=== PATIENT | female | born 2000 | race African-American/Black ===

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

== ENCOUNTER 2018-01-26 19:06 | Emergency (ER) | payer OTHER ==
[2018-01-26 19:15] VITALS: BP 160/70; PULSE 77; RESP 20; TEMP 98.5
[2018-01-26] MEDS ORDERED: LIDOCAINE 1% INJ 10MG/ML (20 ML MDV) SQ ONE (19:16)
[2018-01-26] MEDS ORDERED: DIPH,PERTUS(ACELL)TETVAC-LF 0.5 ML VIAL IM ONE (19:17)
--- NOTE | 2018-01-26 19:22 | ED ---
General Adult HPI - General Chief complaint: Wound/Laceration Stated complaint: rt thumb laceration Source: patient Mode of arrival: ambulatory Limitations: no limitations - History of Present Illness Initial comments: Dictation was produced using [employer] dictation software. please excuse any grammatical, word or spelling errors. Chief Complaint: 16-year-old female presents with right thumb laceration. History of Present Illness: Patient is a 17-year-old -[place] female presents with right thumb laceration. Patient was cutting sweet potatoes with a vegetable slicer when at approximately 6:30 PM she accidentally sliced the distal tip of her right thumb. Patient had cut off a small piece of her right thumb including the nail. Patient noted severe bleeding to the area. Patient states her tetanus was updated 2 years ago. Patient has no other complaints at this time. The ROS documented in this emergency department record has been reviewed and confirmed by me. Those systems with pertinent positive or negative responses have been documented in the HPI. All other systems are other negative and/or noncontributory. - Related Data Home Medications Medication Instructions Recorded Confirmed Fluticasone Nasal [place] [Flonase 1 spray EA NOSTRIL DAILY PRN 01/26/18 01/26/18 Nasal [place]] Ibuprofen [Motrin Ib] 400 mg PO Q6HR PRN 01/26/18 01/26/18 Loratadine [Claritin] 10 mg PO DAILY PRN 01/26/18 01/26/18 Allergies Allergy/AdvReac Type Severity Reaction Status Date / Time amoxicillin Allergy Swelling Verified 01/26/18 19:23 Penicillins Allergy Swelling Verified 01/26/18 19:23 Review of Systems ROS Statement: Those systems with pertinent positive or pertinent negative responses have been documented in the HPI. ROS Other: All systems not noted in ROS Statement are negative. Past Medical History Past Medical History: No Reported History Additional Past Medical History / Comment(s): seasonal allergies History of Any Multi-Drug Resistant Organisms: None Reported Past Surgical History: No Surgical Hx Reported Past Psychological History: No Psychological Hx Reported Smoking Status: Current every day smoker Past Alcohol Use History: None Reported Past Drug Use History: Marijuana General Exam - General Exam Comments Initial Comments: PHYSICAL EXAM: General Impression: Alert and oriented x3, not in acute distress HEENT: Normocephalic atraumatic, extra-ocular movements intact, pupils equal and reactive to light bilaterally, mucous membranes moist. Cardiovascular: Heart regular rate and rhythm, S1&S2 audible, no murmurs, rubs or gallops Chest: Lungs clear to auscultation bilaterally, no rhonchi, no wheeze, no rales Abdomen: Bowel sounds present, abdomen soft, non-tender, non-distended, no organomegaly Musculoskeletal: Pulses present and equal in all extremities, no peripheral edema Motor: Power 5/5 bilaterally, no focal deficits noted Neurological: CN II-XII grossly intact, no focal motor or sensory deficits noted Skin: Intact with no visualized rashes, partial amputation of the right distal thumb. No exposed bone. Psych: Normal affect and mood Limitations: no limitations Course Vital Signs 01/26/18 19:10 Temperature 98.5 F Pulse Rate 77 Respiratory 20 Rate Blood Pressure 160/70 O2 Sat by Pulse 98 Oximetry Medical Decision Making - Medical Decision Making ED course: Old female presents with partial amputation of the distal tip of the right thumb after accident no cutting of her finger using a vegetable slicer. Vital signs upon arrival shows blood pressure 160/70, worse vital signs within normal limits. Digital block was performed. Wound was evaluated. No exposed bone. Hemorrhage was controlled with gentle pressure to the distal tip. Digital block was performed for further evaluation. Patient brought piece of amputated tissue however is devascularized. Furthermore patient's is very small Diagnostic displaced distal tip and bandage was placed. Patient given a thumb splint. No indication for tetanus is up-to-date given that patient had recent tetanus. Wound was irrigated with sterile water. Told to follow up with primary care physician upon discharge. He is told to take Motrin for pain. Disposition Clinical Impression: Laceration Disposition: HOME SELF-CARE Condition: Good Is patient prescribed a controlled substance at d/c from ED?: No Referrals: Klever Swann MD [Primary Care Provider] - 1-2 days Time of Disposition: 19:44
== END 2018-01-26 20:00 | disposition home or self-care (01) ==
LOC: EC 19:06
DX: S61.011A Laceration without foreign body of right thumb without damage to nail, initial encounter (principal); F17.200 Nicotine dependence, unspecified, uncomplicated; Z23 Encounter for immunization; Z88.0 Allergy status to penicillin; W26.8XXA Contact with other sharp object(s), not elsewhere classified, initial encounter; Y92.009 Unspecified place in unspecified non-institutional (private) residence as the place of occurrence of the external cause
CPT/HCPCS: 90715; 99282; 64450; 90471; J2001

== ENCOUNTER 2018-12-03 00:36 | Emergency (ER) | payer OTHER ==
[2018-12-03 00:44] VITALS: RESP 18
[2018-12-03] MEDS ORDERED: SODIUM CHLORIDE 0.9% 500 ML 500 ML IV STA (01:19)
[2018-12-03] MEDS ORDERED: diphenhydrAMINE 50 MG/ML 1 ML VIAL IVP STA (01:19)
[2018-12-03] MEDS ORDERED: FAMOTIDINE 20 MG/2 ML VIAL IV STA (01:19)
[2018-12-03] MEDS ORDERED: predniSONE 20 MG TAB PO STA (01:19)
--- NOTE | 2018-12-03 01:20 | ED ---
Allergic Reaction HPI - General Chief complaint: Allergic Reaction Stated complaint: bee sting Time Seen by Provider: 12/03/18 00:48 Source: patient Mode of arrival: ambulatory Limitations: no limitations - History of Present Illness MD Complaint: hives -: minutes(s) Exposure: insect bite Symptoms: rash, itching Severity: moderate Treatment Prior to Arrival: none Previous Allergy History: prior ED visit(s) - Related Data Home Medications Medication Instructions Recorded Confirmed Fluticasone Nasal [place] [Flonase 1 spray EA NOSTRIL DAILY PRN 01/26/18 01/26/18 Nasal [place]] Ibuprofen [Motrin Ib] 400 mg PO Q6HR PRN 01/26/18 01/26/18 Loratadine [Claritin] 10 mg PO DAILY PRN 01/26/18 01/26/18 Previous Rx's Medication Instructions Recorded Fluticasone Nasal [place] [Flonase 2 spr EA NOSTRIL DAILY #1 bottle 08/28/18 Nasal [place]] methylPREDNISolone [Medrol Dose 4 mg PO DIRECTED #1 pack 08/28/18 Pack] predniSONE 60 mg PO DAILY #30 tab 12/03/18 Allergies Allergy/AdvReac Type Severity Reaction Status Date / Time amoxicillin Allergy Swelling Verified 08/28/18 00:05 bee pollen Allergy Rash/Hives Verified 12/03/18 00:44 Penicillins Allergy Swelling Verified 08/28/18 00:05 Review of Systems ROS Statement: Those systems with pertinent positive or pertinent negative responses have been documented in the HPI. ROS Other: All systems not noted in ROS Statement are negative. Constitutional: Denies: fever, chills, weakness Eyes: Denies: vision change ENT: Denies: throat pain, congestion Respiratory: Denies: cough, wheezes Cardiovascular: Denies: palpitations, syncope Gastrointestinal: Denies: abdominal pain, vomiting, diarrhea Skin: Reports: rash, pruritus Past Medical History Past Medical History: No Reported History Additional Past Medical History / Comment(s): seasonal allergies History of Any Multi-Drug Resistant Organisms: None Reported Past Surgical History: No Surgical Hx Reported Past Psychological History: No Psychological Hx Reported Smoking Status: Current every day smoker Past Alcohol Use History: Abuse, Daily Past Drug Use History: Marijuana General Exam Limitations: no limitations General appearance: alert, in no apparent distress ENT exam: Present: normal oropharynx Respiratory exam: Present: normal lung sounds bilaterally. Absent: respiratory distress, wheezes, rales, rhonchi, stridor Cardiovascular Exam: Present: regular rate, normal rhythm, normal heart sounds. Absent: systolic murmur, diastolic murmur, rubs, gallop GI/Abdominal exam: Present: soft. Absent: tenderness Neurological exam: Present: alert Skin exam: Present: warm, dry, intact, normal color, urticaria. Absent: rash Course Vital Signs 12/03/18 12/03/18 12/03/18 00:40 01:40 04:26 Temperature 97.9 F 97.8 F 98.7 F Pulse Rate 71 61 65 Respiratory 18 18 18 Rate Blood Pressure 144/87 147/90 128/76 O2 Sat by Pulse 98 98 98 Oximetry Disposition Clinical Impression: Allergic reaction to insect sting Disposition: HOME SELF-CARE Condition: Good Instructions (If sedation given, give patient instructions): Insect Bite or Sting (ED), General Allergic Reaction (ED) Prescriptions: predniSONE 60 mg PO DAILY #30 tab Is patient prescribed a controlled substance at d/c from ED?: No Referrals: Klever Swann MD [Primary Care Provider] - 1-2 days
[2018-12-03 04:27] VITALS: BP 128/76; PULSE 65; TEMP 98.7
== END 2018-12-03 04:56 | disposition home or self-care (01) ==
LOC: EC 00:36
DX: T63.441A Toxic effect of venom of bees, accidental (unintentional), initial encounter (principal); F17.200 Nicotine dependence, unspecified, uncomplicated; Z88.0 Allergy status to penicillin; Z91.030 Bee allergy status
CPT/HCPCS: 99282; 96374; 96375; 96361 ×2; J1200; J7512

== ENCOUNTER 2018-12-04 00:50 | Emergency (ER) | payer OTHER ==
[2018-12-04 01:01] VITALS: TEMP 98
[2018-12-04] MEDS ORDERED: DEXAMETHASONE SOD PHOSPHATE 10 MG/ML 1 ML VIAL IM STA (01:14)
[2018-12-04] MEDS ORDERED: IPRATROPIUM-ALBUTEROL 3 ML NEB INHALATION STA (01:14)
[2018-12-04] MEDS ORDERED: FAMOTIDINE 20 MG TAB PO STA (01:14)
--- NOTE | 2018-12-04 02:39 | ED ---
General Adult HPI - General Chief complaint: Allergic Reaction Stated complaint: Allergic Reaction Bee Sting Time Seen by Provider: 12/04/18 01:06 Source: patient Mode of arrival: ambulatory Limitations: no limitations - History of Present Illness Initial comments: 18-year-old female patient presents the emergency department today for evaluation of flushed face and facial swelling. Patient states that she was stung by a bee yesterday. States she was seen here and evaluated for ALLERGIC reaction. States she was discharged with steroids and instructed to take Benadryl. States she last of Benadryl around 4 PM. States she took her steroids this evening. States that after taking the steroids her face became very flushed, she felt weird, and felt like her face was swollen. She denied any lip, tongue, or throat swelling. Patient states she was having some wheezing. States she does occasionally have wheezing because she is a smoker and uses vape pens. She denies any fever or chills. Denies any cough or sputum production. Denies any rash. States that her neck was itchy. Patient denies any recent rash, chest pain, abdominal pain, nausea, vomiting, diarrhea, constipation, back pain, numbness, tingling, dizziness, weakness, hematuria, dysuria, urinary urgency, urinary frequency, headache, visual changes, or any other complaints. - Related Data Home Medications Medication Instructions Recorded Confirmed Fluticasone Nasal [place] [Flonase 1 spray EA NOSTRIL DAILY PRN 01/26/18 01/26/18 Nasal [place]] Ibuprofen [Motrin Ib] 400 mg PO Q6HR PRN 01/26/18 01/26/18 Loratadine [Claritin] 10 mg PO DAILY PRN 01/26/18 01/26/18 Previous Rx's Medication Instructions Recorded Fluticasone Nasal [place] [Flonase 2 spr EA NOSTRIL DAILY #1 bottle 08/28/18 Nasal [place]] methylPREDNISolone [Medrol Dose 4 mg PO DIRECTED #1 pack 08/28/18 Pack] predniSONE 60 mg PO DAILY #30 tab 12/03/18 Allergies Allergy/AdvReac Type Severity Reaction Status Date / Time amoxicillin Allergy Swelling Verified 12/04/18 01:01 bee pollen Allergy Rash/Hives Verified 12/04/18 01:01 Penicillins Allergy Swelling Verified 12/04/18 01:01 Review of Systems ROS Statement: Those systems with pertinent positive or pertinent negative responses have been documented in the HPI. ROS Other: All systems not noted in ROS Statement are negative. Past Medical History Past Medical History: No Reported History Additional Past Medical History / Comment(s): seasonal allergies History of Any Multi-Drug Resistant Organisms: None Reported Past Surgical History: No Surgical Hx Reported Past Psychological History: No Psychological Hx Reported Smoking Status: Current every day smoker Past Alcohol Use History: Abuse, Daily Past Drug Use History: Marijuana General Exam Limitations: no limitations General appearance: alert, in no apparent distress, other (This is a well- developed, well-nourished adult female patient in no acute distress. Vital signs upon presentation are temperature 98.0F, pulse 59, respirations 18, blood pressure 141/93, pulse ox 97% on room air.) Eye exam: Present: normal appearance, PERRL, EOMI. Absent: scleral icterus, conjunctival injection, periorbital swelling ENT exam: Present: normal exam, normal oropharynx, mucous membranes moist Respiratory exam: Present: wheezes (Today expiratory wheezes noted in the posterior lung gonzalez). Absent: normal lung sounds bilaterally, respiratory distress, rales, rhonchi, stridor Cardiovascular Exam: Present: regular rate, normal rhythm, normal heart sounds. Absent: systolic murmur, diastolic murmur, rubs, gallop, clicks GI/Abdominal exam: Present: soft, normal bowel sounds. Absent: distended, tenderness, guarding, rebound, rigid Neurological exam: Present: alert, oriented X3, CN II-XII intact Psychiatric exam: Present: normal affect, normal mood Skin exam: Present: warm, dry, intact, normal color. Absent: rash Course Vital Signs 12/04/18 12/04/18 12/04/18 00:59 01:24 01:31 Temperature 98 F Pulse Rate 59 L 60 66 Respiratory 18 Rate Blood Pressure 141/93 O2 Sat by Pulse 97 Oximetry 12/04/18 12/04/18 01:36 02:55 Temperature 98 F Pulse Rate 74 Respiratory 20 18 Rate Blood Pressure 136/90 O2 Sat by Pulse 97 Oximetry Medical Decision Making - Medical Decision Making 18-year-old female patient presented to the emergency department today for evaluation of facial flushing, swelling, and shortness of breath. Physical examination did reveal expiratory wheezing in the posterior lung gonzalez. Patient's cheeks were red and hot to touch. Patient was given albuterol breathing treatment here in the emergency department as well as an IM dose of Decadron and oral dose of Pepcid.. Upon reevaluation patient is resting comfortably. States symptoms have improved. We discussed use of steroids the possible cause for the flushed feeling in her face. She is urged to continue taking these however given ALLERGIC reaction. She is instructed to follow-up with her primary care physician for recheck in 1-2 days. Return parameters were discussed in detail. She verbalizes understanding and agrees with this plan. Disposition Clinical Impression: Allergic reaction Disposition: HOME SELF-CARE Condition: Good Instructions (If sedation given, give patient instructions): General Allergic Reaction (ED) Additional Instructions: Continue taking Benadryl every 6 hours as needed. Follow-up with your primary care physician for recheck in 1-2 days. Return to the emergency department immediately for any new, worsening, or concerning symptoms. Is patient prescribed a controlled substance at d/c from ED?: No Referrals: Klever Swann MD [Primary Care Provider] - 1-2 days Time of Disposition: 02:40
[2018-12-04 02:57] VITALS: BP 136/90; PULSE 74; RESP 18
== END 2018-12-04 03:02 | disposition home or self-care (01) ==
LOC: EC 00:50
DX: T63.441A Toxic effect of venom of bees, accidental (unintentional), initial encounter (principal); R23.2 Flushing; R22.0 Localized swelling, mass and lump, head; R06.02 Shortness of breath; R06.2 Wheezing; F17.200 Nicotine dependence, unspecified, uncomplicated; Z88.0 Allergy status to penicillin; Z91.030 Bee allergy status
CPT/HCPCS: 94640; 99283; 96372; J1100

== ENCOUNTER 2019-03-07 06:25 | Emergency (ER) | payer OTHER ==
[2019-03-07 06:33] VITALS: RESP 18; TEMP 97.9
[2019-03-07] MEDS ORDERED: ONDANSETRON ODT 4 MG TAB PO STA (06:41)
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
[2019-03-07] MEDS ORDERED: KETOROLAC 60 MG/2 ML VIAL IM STA (07:39)
[2019-03-07 09:19] VITALS: BP 121/73; PULSE 68
== END 2019-03-07 09:17 | disposition home or self-care (01) ==
LOC: EC 06:25
DX: R51 Headache (principal); R42 Dizziness and giddiness; R11.0 Nausea; F17.200 Nicotine dependence, unspecified, uncomplicated; Z88.0 Allergy status to penicillin; Z91.030 Bee allergy status; Y04.0XXA Assault by unarmed brawl or fight, initial encounter; Y93.89 Activity, other specified
CPT/HCPCS: 70450; 99284; 96372; J1885

== ENCOUNTER 2023-05-26 10:12 | Emergency (ER) | payer BC ==
[2023-05-26 10:22] VITALS: BP 180/97
--- NOTE | 2023-05-26 10:23 | ED ---
Abdominal Pain HPI - General Chief Complaint: Abdominal Pain Stated Complaint: Vaginal pain Time Seen by Provider: 05/26/23 10:23 Source: patient, RN notes reviewed Mode of arrival: ambulatory Limitations: no limitations - History of Present Illness Initial Comments: 22-year-old female with a past medical history of endometriosis presents to the emergency department with a chief complaint of suprapubic pain and fevers over the last 6 days. Patient states that she was tested for COVID and flu which came back negative. Patient also endorses dysuria and increase in frequency and urgency and a discoloration of her urine. Patient states that she recently finished her menstrual cycle, but states that she is experiencing a dark red brown-colored discharge. Patient denies history of STI/STD or treatment for them and denies new sexual partners. She is scheduled to follow up with her end polisher for potential biopsy of a cyst today depending on her visit to the ER. - Related Data Home Medications Medication Instructions Recorded Confirmed Sertraline [Zoloft] 25 mg PO HS 06/09/21 06/09/21 Allergies Allergy/AdvReac Type Severity Reaction Status Date / Time amoxicillin Allergy Swelling Verified 06/09/21 23:24 bee pollen Allergy Rash/Hives Verified 06/09/21 23:24 Penicillins Allergy Swelling Verified 06/09/21 23:25 of throat Review of Systems ROS Statement: Those systems with pertinent positive or pertinent negative responses have been documented in the HPI. ROS Other: All systems not noted in ROS Statement are negative. Past Medical History Past Medical History: No Reported History, GERD/Reflux Additional Past Medical History / Comment(s): endometrosis History of Any Multi-Drug Resistant Organisms: None Reported Past Surgical History: No Surgical Hx Reported Past Psychological History: Depression Smoking Status: Vaper Past Alcohol Use History: Occasional Past Drug Use History: Marijuana General Exam Limitations: no limitations General appearance: alert, in no apparent distress Head exam: Present: atraumatic, normocephalic, normal inspection Eye exam: Present: normal appearance, PERRL, EOMI. Absent: scleral icterus, conjunctival injection, periorbital swelling ENT exam: Present: normal exam, mucous membranes moist Neck exam: Present: normal inspection. Absent: tenderness, meningismus, lym phadenopathy Respiratory exam: Present: normal lung sounds bilaterally. Absent: respiratory distress, wheezes, rales, rhonchi, stridor Cardiovascular Exam: Present: regular rate, normal rhythm, normal heart sounds. Absent: systolic murmur, diastolic murmur, rubs, gallop, clicks GI/Abdominal exam: Present: soft, tenderness (suprapubic tenderness to light palpation), guarding (guarding with palpation of RLQ), normal bowel sounds. Absent: distended, rebound, rigid Extremities exam: Present: normal inspection, full ROM, normal capillary refill. Absent: tenderness, pedal edema, joint swelling, calf tenderness Back exam: Present: CVA tenderness (R), CVA tenderness (L) Neurological exam: Present: alert, oriented X3, CN II-XII intact Psychiatric exam: Present: normal affect, normal mood Skin exam: Present: warm, dry, intact, normal color. Absent: rash Course Vital Signs 05/26/23 05/26/23 10:17 14:04 Temperature 98.4 F 98.9 F Pulse Rate 64 70 Respiratory 16 18 Rate Blood Pressure 180/97 O2 Sat by Pulse 98 99 Oximetry Medical Decision Making - Medical Decision Making Was pt. sent in by a medical professional or institution (, PA, [employer]IDENT OF [place], urgent care, hospital, or custodial...) When possible be specific @ -No Did you speak to anyone other than the patient for history (EMS, parent, family, police, friend...)? What history was obtained from this source @ -No Did you review nursing and triage notes (agree or disagree)? Why? @ -I reviewed and agree with nursing and triage notes Were old charts reviewed (outside hosp., previous admission, EMS record, old EKG, old radiological studies, urgent care reports/EKG's, custodial records)? Report findings @ -No old charts were reviewed Differential Diagnosis (chest pain, altered mental status, abdominal pain women, abdominal pain men, vaginal bleeding, weakness, fever, dyspnea, syncope, headache, dizziness, GI bleed, back pain, seizure, CVA, palpatations, mental health, musculoskeletal)? @ -Differential Abdominal Pain Women: Appendicitis, Cholecystitis, diverticulosis, ischemic bowel, pancreatitis, hepa titis, UTI, gastroenteritis, AAA, incarcerated hernia, bowel obstruction, constipation, inflammatory bowel, hepatitis, peptic ulcer disease, splenic infarction, perforated viscus, vulvitis, ovarian torsion, PID, kidney stone, placenta abruption, this is not meant to be an all-inclusive list Differential Vaginal Bleeding: Spontaneous , threatened , molar , ectopic , bloody show, incompetent cervix, abruptioplacenta, placenta previa, uterine rupture, dysfunctional uterine bleeding, hemorrhage, uterine fibroids, this is not meant to be an all-inclusive list. EKG interpreted by me (3pts min.). @ -none X-rays interpreted by me (1pt min.). @ -None done CT interpreted by me (1pt min.). @ -CT abdomen and pelvis shows 9 x 4 x 8.6 cm cystic/solid mass in the pelvis that most likely originates from the right adnexa U/S interpreted by me (1pt. min.). @ -None done What testing was considered but not performed or refused? (CT, X-rays, U/S, labs)? Why? @ -None What meds were considered but not given or refused? Why? @ -None Did you discuss the management of the patient with other professionals (professionals i.e. , PA, [employer]IDENT [place], lab, RT, psych nurse, adoption social worker, cable splicer apprentice, teacher, security vehicle patrol officer, medical case manager)? Give summary @ -Discussed with the attending end polisher on-call , who interpreted the radiology report as well. He spoke to his outpatient office team, and we will have front staff call the patient to schedule of a ultrasound at an office appointment for further evaluation and management of the mass. Was smoking cessation discussed for >3mins.? @ -No Was critical care preformed (if so, how long)? @ -No Were there social determinants of health that impacted care today? How? (Homelessness, low income, unemployed, alcoholism, drug addiction, transportation, low edu. Level, literacy, decrease access to med. care, [facility], rehab)? @ -No Was there de-escalation of care discussed even if they declined (Discuss DNR or withdrawal of care, Hospice)? DNR status @ -No What co-morbidities impacted this encounter? (DM, HTN, Smoking, COPD, CAD, Cancer, CVA, ARF, Chemo, Hep., AIDS, mental health diagnosis, sleep apnea, morbid obesity)? @ -obesity Was patient admitted / discharged? Hospital course, mention meds given and route, prescriptions, significant lab abnormalities, going to OR and other pertinent info. @ -Discharged. 22-year-old female with pelvic pain and fevers over the last 6 days. CBC reveals leukocytosis of 14.5 and neutrophils of 12.1, BMP no electrolyte abnormalities found, LFTs within normal limits. Urinalysis no acute signs of infection, hcg negative. Toradol for pain relief, but states that her pain still is persistent. Given oral [place] for pain relief. CT abdomen and pelvis shows 9 x 4 x 8.6 cm cystic/solid mass in the pelvis that most likely originates from the right adnexa. Discussed with the attending end polisher on- call , who interpreted the radiology report as well. He spoke to his outpatient office team, and we will have front staff call the patient to schedule of a ultrasound at an office appointment for further evaluation and management of the mass. His vitals are stable and physical exam relatively benign. She is stable for discharge. Patient to follow-up with end polisher outpatient for further evaluation and treatment I discussed this case with my attending Dr. Guerrero, who is agreeable with plan and for discharge. Undiagnosed new problem with uncertain prognosis? @ -No Drug Therapy requiring intensive monitoring for toxicity (Heparin, Nitro, Insulin, Cardizem)? @ -No Were any procedures done? @ -No Diagnosis/symptom? @ -Cystic pelvic mass, pelvic pain, abdominal pain Acute, or Chronic, or Acute on Chronic? @ -acute Uncomplicated (without systemic symptoms) or Complicated (systemic symptoms)? @ -uncomplicated Side effects of treatment? @ -No Exacerbation, Progression, or Severe Exacerbation? @ -No Poses a threat to life or bodily function? How? (Chest pain, [place], MD, pneumonia, PE, COPD, DKA, ARF, appy, cholecystitis, CVA, Diverticulitis, Homicidal, Suicidal, threat to staff... and all critical care pts) @ -No - Lab Data Result diagrams: 05/26/23 11:01 05/26/23 11:01 Lab Results 05/26/23 05/26/23 05/26/23 Range/Units 10:47 10:47 11:01 WBC 14.5 H (3.8-10.6) k/uL RBC 4.48 (3.80-5.40) m/uL Hgb 12.6 (11.4-16.0) gm/dL Hct 39.3 (34.0-46.0) % MCV 87.7 (80.0-100.0) fL MCH 28.1 (25.0-35.0) pg MCHC 32.0 (31.0-37.0) g/dL RDW 12.3 (11.5-15.5) % Plt Count 435 (150-450) k/uL MPV 8.8 Neutrophils % 83 % Lymphocytes % 11 % Monocytes % 4 % Eosinophils % 1 % Basophils % 0 % Neutrophils # 12.1 H (1.3-7.7) k/uL Lymphocytes # 1.5 (1.0-4.8) k/uL Monocytes # 0.5 (0-1.0) k/uL Eosinophils # 0.2 (0-0.7) k/uL Basophils # 0.0 (0-0.2) k/uL Sodium (137-145) mmol/L Potassium (3.5-5.1) mmol/L Chloride (98-107) mmol/L Carbon Dioxide (22-30) mmol/L Anion Gap mmol/L BUN (7-17) mg/dL Creatinine (0.52-1.04) mg/dL Est GFR (CKD-EPI)AfAm (>60 ml/min/1.73 sqM) Est GFR (CKD-EPI)NonAf (>60 ml/min/1.73 sqM) Glucose (74-99) mg/dL Calcium (8.4-10.2) mg/dL Total Bilirubin (0.2-1.3) mg/dL AST (14-36) U/L ALT (4-34) U/L Alkaline Phosphatase (38-126) U/L Total Protein (6.3-8.2) g/dL Albumin (3.5-5.0) g/dL Urine Color Yellow Urine Appearance Cloudy H (Clear) Urine pH 5.5 (5.0-8.0) Ur Specific [place] 1.025 (1.001-1.035) Urine Protein Trace H (Negative) Urine Glucose (UA) Negative (Negative) Urine Ketones Negative (Negative) Urine Blood Moderate H (Negative) Urine Nitrite Negative (Negative) Urine Bilirubin Negative (Negative) Urine Urobilinogen <2.0 (<2.0) mg/dL Ur Leukocyte Esterase Moderate H (Negative) Urine RBC 5 (0-5) /hpf Urine WBC 14 H (0-5) /hpf Ur Squamous Epith Cells 6 H (0-4) /hpf Urine Bacteria Rare H (None) /hpf Urine Mucus Occasional H (None) /hpf Urine HCG, Qual Not Detected (Not Detectd) 05/26/23 Range/Units 11:01 WBC (3.8-10.6) k/uL RBC (3.80-5.40) m/uL Hgb (11.4-16.0) gm/dL Hct (34.0-46.0) % MCV (80.0-100.0) fL MCH (25.0-35.0) pg MCHC (31.0-37.0) g/dL RDW (11.5-15.5) % Plt Count (150-450) k/uL MPV Neutrophils % % Lymphocytes % % Monocytes % % Eosinophils % % Basophils % % Neutrophils # (1.3-7.7) k/uL Lymphocytes # (1.0-4.8) k/uL Monocytes # (0-1.0) k/uL Eosinophils # (0-0.7) k/uL Basophils # (0-0.2) k/uL Sodium 138 (137-145) mmol/L Potassium 5.2 H (3.5-5.1) mmol/L Chloride 105 (98-107) mmol/L Carbon Dioxide 25 (22-30) mmol/L Anion Gap 8 mmol/L BUN 12 (7-17) mg/dL Creatinine 0.59 (0.52-1.04) mg/dL Est GFR (CKD-EPI)AfAm >90 (>60 ml/min/1.73 sqM) Est GFR (CKD-EPI)NonAf >90 (>60 ml/min/1.73 sqM) Glucose 117 H (74-99) mg/dL Calcium 9.6 (8.4-10.2) mg/dL Total Bilirubin 0.5 (0.2-1.3) mg/dL AST 57 H (14-36) U/L ALT 43 H (4-34) U/L Alkaline Phosphatase 123 (38-126) U/L Total Protein 7.9 (6.3-8.2) g/dL Albumin 4.2 (3.5-5.0) g/dL Urine Color Urine Appearance (Clear) Urine pH (5.0-8.0) Ur Specific [place] (1.001-1.035) Urine Protein (Negative) Urine Glucose (UA) (Negative) Urine Ketones (Negative) Urine Blood (Negative) Urine Nitrite (Negative) Urine Bilirubin (Negative) Urine Urobilinogen (<2.0) mg/dL Ur Leukocyte Esterase (Negative) Urine RBC (0-5) /hpf Urine WBC (0-5) /hpf Ur Squamous Epith Cells (0-4) /hpf Urine Bacteria (None) /hpf Urine Mucus (None) /hpf Urine HCG, Qual (Not Detectd) Disposition Clinical Impression: Pelvic mass Narrative: Return to the emergency department symptoms worsen or do not prove. Follow-up with end polisher to will call you to schedule an ultrasound appointment for further evaluation. Disposition: HOME SELF-CARE Condition: Good Is patient prescribed a controlled substance at d/c from ED?: No Referrals: Klever Swann MD [Primary Care Provider] - 1-2 days Time of Disposition: 13:57
[2023-05-26] MEDS: KETOROLAC 15 MG/ML 1 ML VIAL IVP STA (11:08)
[2023-05-26] MEDS: SODIUM CHLORIDE 0.9% 1,000 ML IV STA (11:09)
[2023-05-26 11:11] LABS: Basophils % (A) 0 %; Eosinophils # (A) 0.2 k/uL (0-0.7); Eosinophils % (A) 1 %; HCT 39.3 % (34.0-46.0); HGB 12.6 gm/dL (11.4-16.0); Lymphocytes # (A) 1.5 k/uL (1.0-4.8); Lymphocytes % (A) 11 %; MCH 28.1 pg (25.0-35.0); MCV 87.7 fL (80.0-100.0); Mean Platelet Volume 8.8; Monocytes # (A) 0.5 k/uL (0-1.0); Monocytes % (A) 4 %; Neutrophils # (A) 12.1 k/uL (1.3-7.7); Neutrophils % (A) 83 %; Platelet Count 435 k/uL (150-450); RBC 4.48 m/uL (3.80-5.40); RDW 12.3 % (11.5-15.5); WBC 14.5 k/uL (3.8-10.6)
[2023-05-26 11:29] LABS: ALT 43 U/L (4-34); AST 57 U/L (14-36); African American GFR (CKD) >90 (>60 ml/min/1.73 sqM); Albumin 4.2 g/dL (3.5-5.0); Alkaline Phosphatase 123 U/L (38-126); Anion Gap 8 mmol/L; Blood Urea Nitrogen 12 mg/dL (7-17); Calcium 9.6 mg/dL (8.4-10.2); Carbon Dioxide 25 mmol/L (22-30); Chloride 105 mmol/L (98-107); Glucose 117 mg/dL (74-99); Non-African American GFR(CKD) >90 (>60 ml/min/1.73 sqM); Sodium 138 mmol/L (137-145); Total Bilirubin 0.5 mg/dL (0.2-1.3); Total Protein 7.9 g/dL (6.3-8.2)
[2023-05-26 11:36] LABS: Appearance,Urine Cloudy (Clear); Bacteria,Urine Rare /hpf; Bilirubin,Urine Negative (Negative); Blood,Urine Moderate (Negative); Color,Urine Yellow; Glucose,Urine (UA) Negative (Negative); Ketones,Urine Negative (Negative); Leukocyte Esterase,Urine Moderate (Negative); Mucus,Urine Occasional /hpf; Nitrite,Urine Negative (Negative); PH, Urine 5.5 (5.0-8.0); Protein,Urine Trace (Negative); RBC,Urine 5 /hpf (0-5); Specific Gravity,Urine 1.025 (1.001-1.035); Squamous Epithelial Cell,Urine 6 /hpf (0-4); Urobilinogen,Urine <2.0 mg/dL (<2.0); WBC,Urine 14 /hpf (0-5)
[2023-05-26 11:54] LABS: Potassium 5.2 mmol/L (3.5-5.1)
[2023-05-26] MEDS: HYDROcodone/APAP 5-325MG 1 EACH TAB PO STA (12:13)
--- NOTE | 2023-05-26 12:54 | CT ---
EXAMINATION TYPE: CT abdomen pelvis w con DATE OF EXAM: 05/26/2023 COMPARISON: 06/10/2021 HISTORY: suprapubic pain, fever 5+ days CT DLP: 1805.6 mGycm Automated exposure control for dose reduction was used. TECHNIQUE: Helical acquisition of images was performed from the lung bases through the pelvis. CONTRAST: Performed without Oral Contrast and with IV Contrast, patient injected with 100 ml mL of Isovue 300. FINDINGS: The lung bases are clear. The gallbladder is normal without distention, wall thickening, pericholecystic fluid or gallstones. T here is no biliary ductal dilatation. There is no focal mass or organomegaly involving the liver, pancreas, spleen or adrenal glands. There is no solid renal mass or hydronephrosis and there is homogeneous contrast enhancement of the r enal parenchyma. The caliber the abdominal aorta is normal is no retroperitoneal adenopathy or hemorr bailee. The bowel loops are normal in caliber and there is no evidence of dilatation or obstruction. No infla mmatory changes are identified in the bowel wall or mesentery. There is no free intraperitoneal air or fluid. There is a large 9.4 x 8.6 cm predominantly cystic / partially solid multiseptated mass in the pelvis likely arising from the right adnexa. There is no free fluid in the cul-de-sac. The uterus is unrem arkable. There is no pelvic adenopathy. The osseous structures and soft tissues are intact. IMPRESSION: Large complex mass within the pelvis as described above. Further evaluation is warranted to rule out neoplasm. MRI of the pelvis useful for further evaluation.
[2023-05-26 14:32] VITALS: PULSE 70; RESP 18; TEMP 98.9
== END 2023-05-26 14:26 | disposition home or self-care (01) ==
LOC: EC 10:12
DX: R19.09 Other intra-abdominal and pelvic swelling, mass and lump (principal); F17.290 Nicotine dependence, other tobacco product, uncomplicated; Z88.0 Allergy status to penicillin; Z91.018 Allergy to other foods
CPT/HCPCS: 36415; 80053; 85025; 81001; 81025; 87491; 87591; 87086; 74177; 99284; 96374; 96361; J1885; Q9967